=== PATIENT | male | born 1995 | race Caucasian/White ===

== ENCOUNTER 2021-04-07 07:41 | Emergency (ER) | payer MEDICAID ==
[~2021-04-07] VITALS: Ht 170.2 cm; Wt 81.6 kg
[2021-04-07] MEDS ORDERED: ONDANSETRON HCL 4MG/2ML INJ IV ONE (08:00)
[2021-04-07 08:32] LABS: BASOPHILS % 0.2 % (0.0-2.0); EOSINOPHILS % 0.1 % (0.0-5.0); HEMATOCRIT. 43.5 % (42.0-52.0); HEMOGLOBIN. 14.5 g/dL (14.0-18.0); LYMPHOCYTES % 8.6 % (20.0-50.0); MEAN CORPUSCULAR HEMOGLOBIN 29.9 pg (28.0-32.0); MEAN CORPUSCULAR VOLUME 89.5 fL (80.0-94.0); MEAN PLATELET VOLUME 8.3 fl (7.4-10.4); MONOCYTES % 5.7 % (2.0-8.0); NEUTROPHILS % 85.4 % (40.0-76.0); PLATELET 305 x1000/uL (130-400); RED BLOOD CELL COUNT 4.86 mill/uL (4.7-6.1); RED CELL DISTRIBUTION WIDTH 13.4 % (11.6-14.6)
[2021-04-07 08:33] LABS: CHLORIDE 106 mEq/L (98-107)
[2021-04-07 08:39] LABS: ETHANOL BLOOD < 10 mg/dL
[2021-04-07 08:50] LABS: CARBAMAZEPINE < 0.5 ug/mL (4-12); PHENOBARBITAL < 2.1 ug/mL (15.0-40.0); VALPROIC ACID < 3.0 ug/mL (50-100)
[2021-04-07 10:26] VITALS: BP 136/79
== END 2021-04-07 10:35 | disposition home or self-care (01) ==
LOC: ER 08:08
DX: G40.909 Epilepsy, unspecified, not intractable, without status epilepticus (principal); R11.0 Nausea; Z91.14 Patient's other noncompliance with medication regimen
CPT/HCPCS: 36415; 80053; 80156; 80165; 80184; 80185; 80320; 85025; 99283; J2405; G0480